=== PATIENT | female | born 1970 | race African-American/Black ===

== ENCOUNTER 2017-08-12 19:47 | Emergency (ER) | payer SELFPAY, MEDICAID | END 2017-08-13 03:21 | disposition left against medical advice (07) | LOC: E/R 19:47 | DX: Z53.21 Procedure and treatment not carried out due to patient leaving prior to being seen by health care provider (principal) ==

== ENCOUNTER 2017-08-13 03:37 | Inpatient (IN) | payer OTHER ==
[2017-08-13 04:43] LABS: ADD MAN DIFF? NO
[2017-08-13] MEDS: DIPHENHYDRAMINE 50 MG INJ IV (04:44)
[2017-08-13] MEDS: DEXAMETHASONE 10 MG/ML 1 ML INJ IV (04:44)
[2017-08-13] MEDS: SOD CHLORIDE 0.9% 500 ML IV (04:45)
[2017-08-13] MEDS: PANTOPRAZOLE 40 MG INJ IV (04:45)
[2017-08-13 04:48] LABS: WHITE BLOOD COUNT 8.2 10^3/ul (4.8-10.8)
[2017-08-13 04:48] LABS: BASOPHILS % 0.4 % (0.0-2.0); EOSINOPHILS # 0.3 10^3/ul (0.0-0.5); EOSINOPHILS % 3.2 % (0.0-7.0); HEMOGLOBIN 8.6 g/dl (12.0-16.0); LYMPHOCYTES % 24.8 % (15.0-51.0); MEAN CORPUSCULAR HEMOGLOBIN 29.6 pg (29.0-33.0); MEAN CORPUSCULAR HGB CONC 33.1 g/dl (32.0-37.0); MEAN CORPUSCULAR VOLUME 89.3 fl (82.0-101.0); MEAN PLATELET VOLUME 12.4 fl (7.4-10.4); MONOCYTE # 0.6 10^3/ul (0.3-0.9); MONOCYTES % 6.7 % (0.0-11.0); NEUTROPHIL # 5.3 10^3/ul (1.6-7.5); NEUTROPHILS % 64.5 % (39.0-77.0); PLATELET COUNT 206 10^3/UL (140-415); RED BLOOD COUNT 2.91 10^6/ul (4.20-5.40); RED CELL DISTRIBUTION WIDTH 13.4 % (11.5-14.5)
[2017-08-13 05:05] LABS: ALBUMIN 4.1 g/dl (3.3-4.9); ALBUMIN/GLOBULIN RATIO 1.17; ALKALINE PHOSPHATASE 47 IU/L (42-121); ANION GAP 21 (8-16); ASPARTATE AMINO TRANSFERASE 19 IU/L (15-46); BLOOD UREA NITROGEN 47 mg/dl (7-20); CALCIUM 9.1 mg/dl (8.4-10.2); CARBON DIOXIDE 18 mmol/L (21-31); CHLORIDE 113 mmol/L (97-110); CREATININE 8.13 mg/dl (0.44-1.00); GLUCOSE 120 mg/dl (70-220); POTASSIUM 4.5 mmol/L (3.5-5.1); SODIUM 147 mmol/L (135-144); TOTAL PROTEIN 7.6 g/dl (6.1-8.1)
[2017-08-13 05:06] LABS: ALANINE AMINOTRANSFERASE 21 IU/L (13-69)
[2017-08-13 05:08] LABS: INR 1.01; PROTIME 13.4 Sec (11.9-14.9)
[2017-08-13 05:09] LABS: PARTIAL THROMBOPLASTIN TIME 25.5 Sec (25.0-35.0); THROMBIN TIME 14.3 SEC (13.8-19.1)
[2017-08-13 07:50] LABS: PLATELET COUNT 206 10^3/UL (140-440)
[2017-08-13] MEDS ORDERED: ACETAMINOPHEN 325 MG TAB PO ×2 (09:00→10:30)
[2017-08-13] MEDS ORDERED: ONDANSETRON 4 MG INJ IV (09:00)
[2017-08-13] MEDS ORDERED: BISACODYL 10 MG SUPP PR (10:30)
[2017-08-13] MEDS ORDERED: HYDROCODONE/APAP (5/325) TAB PO (10:30)
[2017-08-13] MEDS ORDERED: MAGNESIUM HYDROXIDE 30ML CUP PO (10:30)
[2017-08-13] MEDS ORDERED: DOCUSATE SODIUM 100 MG CAP PO (10:30)
[2017-08-13] MEDS ORDERED: NACL 0.9% 3 ML SYG IV (10:30)
[2017-08-13 12:28] LABS: URIC ACID 8.2 mg/dl (3.1-7.9)
[2017-08-13 12:28] LABS: CREATINE KINASE 109 IU/L (23-200)
[2017-08-13 12:45] LABS: INR 1.06; PARTIAL THROMBOPLASTIN TIME 28.1 Sec (25.0-35.0); PROTIME 13.9 Sec (11.9-14.9); PT RATIO 1.1
[2017-08-13 12:47] LABS: FREE T4 (FREE THYROXINE) 0.91 ng/dl (0.64-1.79)
[2017-08-13 12:50] LABS: IRON 62 ug/dl (35-150)
[2017-08-13 13:00] LABS: % IRON SATURATION 23 % SAT (22-52); TOTAL IRON BINDING CAPACITY 270 ug/dl (241-421)
[2017-08-13 13:05] LABS: FERRITIN 25.5 ng/ml (6.2-137.0)
[2017-08-13] MEDS: AMLODIPINE 10 MG TAB PO (13:07)
[2017-08-13] MEDS: LABETALOL 100 MG TAB PO ×2 (13:08→21:36)
[2017-08-13 13:35] LABS: FOLATE 14.7 ng/ml (2.8-20.0)
[2017-08-13] MEDS: MIRTAZAPINE 15 MG TAB PO (21:36)
[2017-08-13] MEDS: FAMOTIDINE 20 MG TAB PO (21:36)
[2017-08-14 07:41] LABS: ADD MAN DIFF? NO; HAAIG REFLEX REFLEX FILED
[2017-08-14 07:50] LABS: BASOPHILS % 0.1 % (0.0-2.0); HEMATOCRIT 27.9 % (37.0-47.0); HEMOGLOBIN 9.2 g/dl (12.0-16.0); LYMPHOCYTES # 1.6 10^3/ul (0.8-2.9); LYMPHOCYTES % 11.4 % (15.0-51.0); MEAN CORPUSCULAR HEMOGLOBIN 29.5 pg (29.0-33.0); MEAN CORPUSCULAR VOLUME 89.4 fl (82.0-101.0); MEAN PLATELET VOLUME 12.1 fl (7.4-10.4); MONOCYTE # 0.6 10^3/ul (0.3-0.9); MONOCYTES % 4.5 % (0.0-11.0); NEUTROPHIL # 11.5 10^3/ul (1.6-7.5); NEUTROPHILS % 82.9 % (39.0-77.0); PLATELET COUNT 248 10^3/UL (140-415); RED BLOOD COUNT 3.12 10^6/ul (4.20-5.40); RED CELL DISTRIBUTION WIDTH 13.8 % (11.5-14.5)
[2017-08-14 07:50] LABS: WHITE BLOOD COUNT 13.9 10^3/ul (4.8-10.8)
[2017-08-14 08:15] LABS: ALANINE AMINOTRANSFERASE 11 IU/L (13-69); ALBUMIN 4.7 g/dl (3.3-4.9); ALKALINE PHOSPHATASE 56 IU/L (42-121); ANION GAP 24 (8-16); ASPARTATE AMINO TRANSFERASE 18 IU/L (15-46); BLOOD UREA NITROGEN 52 mg/dl (7-20); CALCIUM 9.9 mg/dl (8.4-10.2); CARBON DIOXIDE 14 mmol/L (21-31); CHLORIDE 118 mmol/L (97-110); CHOL/HDL RATIO 4.8 RATIO; CHOLESTEROL 209 mg/dl (100-200); CREATININE 8.18 mg/dl (0.44-1.00); GLUCOSE 124 mg/dl (70-220); HDL CHOLESTEROL 43 mg/dl (34-88); LDL CHOLESTEROL,CALCULATED 137 mg/dl; MAGNESIUM 2.3 mg/dl (1.7-2.5); PHOSPHORUS 4.9 mg/dl (2.5-4.9); POTASSIUM 5.3 mmol/L (3.5-5.1); SODIUM 151 mmol/L (135-144); TOTAL PROTEIN 8.3 g/dl (6.1-8.1); TRIGLYCERIDES 146 mg/dl (0-149)
[2017-08-14 08:51] LABS: HEPATITIS B SURFACE ANTIGEN NEGATIVE (NEGATIVE)
[2017-08-14] MEDS: AMLODIPINE 10 MG TAB PO (09:00)
[2017-08-14 09:08] LABS: HEPATITIS B CORE ANTIBODY NEGATIVE (NEGATIVE); HEPATITIS C VIRAL ANTIBODY NEGATIVE (NEGATIVE)
[2017-08-14 09:12] LABS: HIV 1&2 ANTIBODY NEGATIVE (NEGATIVE)
[2017-08-14] MEDS: LABETALOL 100 MG TAB PO ×2 (10:00→21:03)
[2017-08-14] MEDS ORDERED: LIDOCAINE 1% (MDV) 20 ML INJ (13:10)
[2017-08-14] MEDS ORDERED: FENTAnyl 50 MCG/ML VIAL (13:10)
[2017-08-14] MEDS ORDERED: HEPARIN 1000 UNITS/NS (A-LINE) 1,000 ML (13:10)
[2017-08-14] MEDS ORDERED: MIDAZOLAM 1 MG/ML 2 ML INJ (13:10)
[2017-08-14] MEDS ORDERED: HEPARIN 1000 UNITS/ML 10 ML INJ (13:10)
[2017-08-14] MEDS: HEPARIN 1000 UNITS/ML 10 ML INJ CATHETER (19:20)
[2017-08-14] MEDS: FAMOTIDINE 20 MG TAB PO (21:03)
[2017-08-14] MEDS: MIRTAZAPINE 15 MG TAB PO (21:03)
[2017-08-14] MEDS: ALPRAZOLAM 0.5 MG TAB PO (23:29)
[2017-08-15 05:32] LABS: ADD MAN DIFF? NO
[2017-08-15 05:39] LABS: WHITE BLOOD COUNT 9.2 10^3/ul (4.8-10.8)
[2017-08-15 05:39] LABS: BASOPHILS % 0.2 % (0.0-2.0); HEMATOCRIT 26.3 % (37.0-47.0); HEMOGLOBIN 8.7 g/dl (12.0-16.0); LYMPHOCYTES # 1.5 10^3/ul (0.8-2.9); MEAN CORPUSCULAR HEMOGLOBIN 29.3 pg (29.0-33.0); MEAN CORPUSCULAR HGB CONC 33.1 g/dl (32.0-37.0); MEAN CORPUSCULAR VOLUME 88.6 fl (82.0-101.0); MONOCYTE # 0.6 10^3/ul (0.3-0.9); NEUTROPHILS % 76.3 % (39.0-77.0); PLATELET COUNT 172 10^3/UL (140-415); RED BLOOD COUNT 2.97 10^6/ul (4.20-5.40); RED CELL DISTRIBUTION WIDTH 13.3 % (11.5-14.5)
[2017-08-15 06:17] LABS: ALANINE AMINOTRANSFERASE 17 IU/L (13-69); ALBUMIN 3.8 g/dl (3.3-4.9); ALBUMIN/GLOBULIN RATIO 1.15; ALKALINE PHOSPHATASE 45 IU/L (42-121); ANION GAP 19 (8-16); ASPARTATE AMINO TRANSFERASE 17 IU/L (15-46); BLOOD UREA NITROGEN 34 mg/dl (7-20); CALCIUM 9.2 mg/dl (8.4-10.2); CARBON DIOXIDE 26 mmol/L (21-31); CHLORIDE 109 mmol/L (97-110); CREATININE 4.87 mg/dl (0.44-1.00); GLUCOSE 102 mg/dl (70-220); POTASSIUM 4.9 mmol/L (3.5-5.1); SODIUM 149 mmol/L (135-144); TOTAL PROTEIN 7.1 g/dl (6.1-8.1)
[2017-08-15 06:24] LABS: PHOSPHORUS 4.3 mg/dl (2.5-4.9)
[2017-08-15] MEDS: ONDANSETRON 4 MG INJ IV (06:42)
[2017-08-15] MEDS: morphine 2 MG INJ IV ×3 (06:43→22:48)
[2017-08-15] MEDS: LABETALOL 100 MG TAB PO ×2 (08:47→22:49)
[2017-08-15] MEDS: AMLODIPINE 10 MG TAB PO (08:47)
[2017-08-15] MEDS: HEPARIN 1000 UNITS/ML 10 ML INJ CATHETER (20:00)
[2017-08-15] MEDS: MIRTAZAPINE 15 MG TAB PO (22:49)
[2017-08-15] MEDS: FAMOTIDINE 20 MG TAB PO (22:49)
[2017-08-16 05:35] LABS: ANION GAP 15 (8-16); BLOOD UREA NITROGEN 23 mg/dl (7-20); CALCIUM 8.7 mg/dl (8.4-10.2); CARBON DIOXIDE 30 mmol/L (21-31); CHLORIDE 103 mmol/L (97-110); CREATININE 3.89 mg/dl (0.44-1.00); GLUCOSE 95 mg/dl (70-220); POTASSIUM 4.3 mmol/L (3.5-5.1); SODIUM 144 mmol/L (135-144)
[2017-08-16 06:28] LABS: MAGNESIUM 1.9 mg/dl (1.7-2.5)
[2017-08-16 06:28] LABS: PHOSPHORUS 4.6 mg/dl (2.5-4.9)
[2017-08-16] MEDS: AMLODIPINE 10 MG TAB PO (08:31)
[2017-08-16] MEDS: LABETALOL 100 MG TAB PO (08:31)
[2017-08-16] MEDS: HEPARIN 1000 UNITS/ML 10 ML INJ CATHETER (16:24)
== END 2017-08-16 19:35 | disposition home or self-care (01) | DRG 674 ==
LOC: PP2 08-14 02:41 → E/R 03:37 → MS3 09:00
PROC: 0JH63XZ Insertion of Tunneled Vascular Access Device into Chest Subcutaneous Tissue and Fascia, Percutaneous Approach (ICD-10-PCS; principal; 2017-08-14 13:00)
PROC: 02H633Z Insertion of Infusion Device into Right Atrium, Percutaneous Approach (ICD-10-PCS; 2017-08-14 13:00)
PROC: 5A1D70Z Performance of Urinary Filtration, Intermittent, Less than 6 Hours Per Day (ICD-10-PCS; 2017-08-14 13:15)
DX: N17.9 Acute kidney failure, unspecified (principal); Q61.3 Polycystic kidney, unspecified; E87.2 Acidosis; I12.0 Hypertensive chronic kidney disease with stage 5 chronic kidney disease or end stage renal disease; F17.210 Nicotine dependence, cigarettes, uncomplicated; N18.6 End stage renal disease; Z99.2 Dependence on renal dialysis; F41.9 Anxiety disorder, unspecified; R60.1 Generalized edema; D63.1 Anemia in chronic kidney disease; E87.5 Hyperkalemia
CPT/HCPCS: 71045; 76775; 80048; 80053; 80061; 82550; 82607; 82728; 82746; 83540; 83735; 84100; 84439; 84443; 84560; 85025; 85049; 85610; 85670; 85730; 86703; 86704; 86709; 86803; 87340; 90935; 93970; 96374; 96375; 99285-25